=== PATIENT | male | born 1930 | race Caucasian/White ===

== ENCOUNTER 2016-12-07 11:07 | Emergency (ER) | payer MEDICARE, OTHER | END 2016-12-07 11:45 | disposition home or self-care (01) | LOC: ERS 11:07 | DX: B02.9 Zoster without complications (principal); Z79.01 Long term (current) use of anticoagulants; Z79.899 Other long term (current) drug therapy | CPT/HCPCS: 99282 ==

== ENCOUNTER 2017-12-19 09:42 | Outpatient (CLI) | payer MEDICARE, OTHER ==
--- NOTE | 2017-12-19 12:25 | RAD ---
CHEST TWO VIEWS: HISTORY: Dyspnea. Pulmonary edema. COMPARISON: 05/22/2016 FINDINGS: Diffuse interstitial prominence is seen bilaterally. The vascular markings appear within the normal range. Findings suggest chronic interstitial disease. An element of interstitial edema is not exclu ded, although there does not appear to be significant vascular congestion. Heart size is upper j luis l and stable. Aortic calcification is seen. Osseous structures are unremarkable. IMPRESSION: Diffuse interstitial prominence, similar to the prior study. No focal infiltrate or consolidation. POS: [facility]
== END 2017-12-19 09:43 | disposition home or self-care (01) ==
LOC: SCSRAD 09:42
PROVIDERS: ATTEND Family Medicine
DX: J20.9 Acute bronchitis, unspecified (principal)
CPT/HCPCS: 71046

== ENCOUNTER 2018-04-08 16:56 | Inpatient (IN) | payer MEDICARE, OTHER ==
[2018-04-08] MEDS ORDERED: Dexamethasone 10 MG/ML VIAL ONE (18:02)
[2018-04-08] MEDS ORDERED: cefTRIAXone\\ROCEPHIN 1 GM VIAL ONE (18:02)
[2018-04-08 18:06] LABS: Hemoglobin 14.2 g/dL (14.0-18.0); Mean Corpuscular HGB CONC 32.7 g/dL (32.0-36.0); Mean Corpuscular Hemoglobin 30.6 pg (27.0-31.0); Mean Corpuscular Volume 93.6 fL (78.0-98.0); Mean Platelet Volume 8.1 fL (7.4-10.4); Platelet Count 242 thou/uL (130-400); RBC Distribution Width 12.1 % (11.5-14.5); Red Blood Cell (RBC) Count 4.64 mill/uL (4.70-6.10); White Blood Cell (WBC) Count 7.6 thou/uL (4.8-10.8)
--- NOTE | 2018-04-08 18:06 | RAD ---
CHEST ONE VIEW: 04/08/18 INDICATION: Cough with sepsis. COMPARISON: Prior exam dated 05/22/16 and prior dated 12/19/17. FINDINGS: The fibrotic change is stable. Cardiomegaly is stable. No acute air space opacity or pleural effusion is evident. Right costophrenic angle is excluded. No pneumothorax is evident. Chronic osseous mcknight es are similar appearing. IMPRESSION: Stable exam. No acute abnormality. Limitations to exam as above. POS: [facility]
[2018-04-08 18:16] LABS: ALT (SGPT) 48 U/L (8-55); AST (SGOT) 32 U/L (5-34); Albumin 3.5 g/dL (3.4-4.8); Alkaline Phosphatase 69 U/L (40-150); Anion Gap 15 mmol/L (10-20); BUN (Urea Nitrogen) 21 mg/dL (8.4-25.7); Bilirubin, Total 0.9 mg/dL (0.2-1.2); Calc. Creatinine Clearance 0 mL/min (70-130); Calcium 8.9 mg/dL (7.8-10.44); Carbon Dioxide 23 mmol/L (23-31); Chloride 102 mmol/L (98-107); Estimated GFR-MDRD 72; Globulin 3.6 g/dL (2.4-3.5); Glucose 96 mg/dL (83-110); Potassium 3.5 mmol/L (3.5-5.1); Protein, Total 7.1 g/dL (5.8-8.1); Sodium 136 mmol/L (136-145)
[2018-04-08 18:26] LABS: Band 2 % (5-11); Eosinophils 2 % (0-10); Lymphocytes 23 % (21-51); MDiff Complete? YES; Monocytes 15 % (0-10); Neutrophil 56 % (42-75); Platelet Morphology Comment Appears Adequate; Reactive Lymphocytes 2 % (0-10)
[2018-04-08] MEDS ORDERED: Azithromycin 500 MG VIAL ONE (19:25)
[2018-04-08 22:36] LABS: Bilirubin Small (Negative); Blood, Urine Negative (Negative); Clarity CLEAR (Clear); Glucose, Urine (Dipstick) Negative (Negative); Leukocyte Negative (Negative); Nitrite Negative (Negative); Protein, Urine (Dipstick) 30 mg/dL (Neg-Trace); Specific Gravity, Urine 1.026 (1.002-1.036)
[2018-04-08 22:38] LABS: Bacteria/HPF None Seen HPF (None Seen); Hyaline Casts/LPF 7-10 HYALINE CAST LPF (0-3 Hyaline); Pathc Cast-AUWi Flag 1.01 (0-2.49); RBC/HPF 0-3 HPF (0-3); Squamous Epithelial 0-3 HPF (0-3); WBC/HPF 0-3 HPF (0-3)
--- NOTE | 2018-04-08 23:09 | HP ---
PRIMARY CARE PHYSICIAN: Dr Wilks. CHIEF COMPLAINT: Cough for 10 days. HISTORY OF PRESENT ILLNESS: The patient is an 87-year-old male with past medical history of hypothyroidism, BPH, who presented to the emergency department with productive cough for 10 days. The patient was seen by his PCP and was started on clarithromycin, which did not improve the patient's symptoms. The patient's symptoms became worse and that is why he came to the ER. The patient denies any fevers or chills. The patient does not use oxygen at home. The patient denies any history of asthma or COPD. The patient denies any urinary symptoms. The patient denies any chest pain at this point. The patient also denies any shortness of breath. The patient is accompanied by his son, who was present bedside. PAST MEDICAL HISTORY: Hypothyroidism, BPH. PAST SURGICAL HISTORY: The patient has basal cell carcinoma history, tonsillectomy. SOCIAL HISTORY: Lives at home with family. Denies any smoking or alcohol use. FAMILY HISTORY: The patient does not believe that his family had any significant past medical condition. ALLERGIES: NO KNOWN DRUG ALLERGIES. MEDICATIONS: 1. Levothyroxine. 2. Benzonatate. 3. Clarithromycin. 4. Acetaminophen. 5. Ferrous sulfate. 6. Ibuprofen. 7. Vitamin D3. 8. Vitamin B12. 9. Flomax. REVIEW OF SYSTEMS: A 10-point review of system negative other than mentioned in the HPI. PHYSICAL EXAMINATION: CONSTITUTIONAL: The patient is noted to be alert. HEENT: Head, atraumatic. Eyes, extraocular movement intact. Ears and nose appears grossly normal. Throat, no exudate noted. The patient does appear to have dry mouth. RESPIRATORY: Respiration rate, wheezing and upper airway transmitted sound noted. The patient appeared to be breathing normally. CARDIOVASCULAR: Tachycardic. Normal rhythm. No murmur, rubs, or gallops. ABDOMEN: Soft and nontender. Bowel sounds positive. EXTREMITIES: No edema noted. NEUROLOGIC: The patient appears to be alert. SKIN: No abnormal rashes noted. LABORATORY DATA: The patient's labs reviewed. BMP, appears to be grossly normal. BNP was 102. CBC, white blood cell count 7.6, hemoglobin 14.2, hematocrit 43.5, platelet is 242. UA is pending at this point. DIAGNOSTIC DATA: Chest x-ray reviewed and stable fibrotic changes, stable. No acute abnormality noted. EKG reviewed. No ST-segment elevation noted. QTc 481. Significant for rhythm with sinus arrhythmia. ASSESSMENT AND PLAN: 1. Bronchitis/cough. Unclear if this is bacterial versus viral. The patient was admitted with suspicion for pneumonia. The patient was given ceftriaxone, azithromycin, dextromethorphan and DuoNeb in the ER, which made him feel better. We will continue ceftriaxone and azithromycin at this point. CT chest without contrast ordered. We will follow cultures. Continue nebs and oxygen. 2. Hypertension. The patient was admitted with blood pressure of 85/64, improved with IV fluids bolus in the ED. The patient appears to be bit dehydrated, although the creatinine was within normal limits. We will continue IV fluids for one day and continue to monitor the patient's blood pressure at this point. 3. History of BPH. We will continue patient on Flomax. 4. Hypothyroidism. We will continue patient's levothyroxine. 5. The patient is full code. 6. Medical power of deputy county attorney. The patient would like his son to make decision if he is not able to. 7. Deep venous thrombosis prophylaxis, Lovenox. Job ID: [id number] [facility]
[2018-04-09] MEDS ORDERED: Azithromycin 500 MG in Sodium Chloride 0.9% 250 ML 250 ML IVPB SCH ×2 (00:02→20:00)
[2018-04-09] MEDS ORDERED: Benzonatate 100 MG CAP PO PRN (00:02)
[2018-04-09] MEDS ORDERED: Albuterol Sulfate 1.25 MG/3 ML NEB NEB PRN (00:02)
[2018-04-09] MEDS ORDERED: Diabetic Tussin 200 MG/10 ML UDCUP PO PRN (00:02)
[2018-04-09] MEDS ORDERED: Bisacodyl 5 MG TAB PO PRN (00:02)
[2018-04-09] MEDS ORDERED: Acetaminophen 325 MG TAB PO PRN (00:02)
[2018-04-09] MEDS: Sodium Chloride 0.9% 1,000 ML IV SCH ×2 (00:36→19:31)
[2018-04-09 00:53] VITALS: BMI 22.6
[2018-04-09] MEDS: Levothyroxine Sodium 125 MCG TAB PO SCH (05:31)
[2018-04-09 06:44] LABS: Anion Gap 14 mmol/L (10-20); BUN (Urea Nitrogen) 18 mg/dL (8.4-25.7); Calc. Creatinine Clearance 48 mL/min (70-130); Calcium 8.4 mg/dL (7.8-10.44); Carbon Dioxide 18 mmol/L (23-31); Chloride 105 mmol/L (98-107); Estimated GFR-MDRD 64; Glucose 228 mg/dL (83-110); Potassium 3.4 mmol/L (3.5-5.1); Sodium 134 mmol/L (136-145)
[2018-04-09 07:22] LABS: Hemoglobin 12.7 g/dL (14.0-18.0); Mean Corpuscular HGB CONC 33.9 g/dL (32.0-36.0); Mean Corpuscular Hemoglobin 31.9 pg (27.0-31.0); Mean Corpuscular Volume 94.2 fL (78.0-98.0); Mean Platelet Volume 7.9 fL (7.4-10.4); Platelet Count 198 thou/uL (130-400); Red Blood Cell (RBC) Count 3.98 mill/uL (4.70-6.10); White Blood Cell (WBC) Count 4.2 thou/uL (4.8-10.8)
[2018-04-09 08:33] LABS: Band 10 % (5-11); Lymphocytes 13 % (21-51); MDiff Complete? YES; Metamyelocyte 2 % (0-0); Monocytes 1 % (0-10); Myelocyte 3 % (0-0); Neutrophil 71 % (42-75); RBC Morphology Normal
[2018-04-09] MEDS: Enoxaparin Sodium 30 MG/0.3 ML SYRINGE SC SCH (09:26)
[2018-04-09] MEDS: Tamsulosin HCl 0.4 MG CAP PO SCH (09:26)
--- NOTE | 2018-04-09 09:33 | CT ---
CT CHEST WITHOUT CONTRAST: Technique: Multiple axial tomograms were obtained through the chest without IV enhancement. Indications: Bronchitis. Chest pain. FINDINGS: There are chronic lung parenchymal changes consistent with COPD. There is mild hyperexpansion. Inters titial prominence is seen in the periphery of both lungs, more prominent in the mid and lower lung fi elds. There is stranding in the lung bases seen bilaterally. Mild lower lobe bronchiectasis, slightly more prominent in the posterior right lung base. There is an 8 mm nodule near the pleural surface la teral right lung base. No evidence of infiltrate or consolidation. Mediastinum unremarkable. No adeno meryl. Upper abdomen shows a mildly distended gallbladder with at least two calcified gallstones in t he gallbladder fundus. Osseous structures unremarkable. IMPRESSION: 1. Chronic lung parenchymal changes as described above. No evidence of confluent alveolar infiltrate. 2. Small 8 mm nodule in the right lower lobe peripherally. Suggest follow up noncontrast CT in 6 praful hs to confirm stability. 3. Cholelithiasis is noted. POS: [facility]
[2018-04-09] MEDS ORDERED: Cefdinir 300 MG CAP PO SCH (10:45)
[2018-04-09] MEDS ORDERED: Potassium Chloride 20 MEQ TAB PO SCH (10:45)
--- NOTE | 2018-04-09 14:01 | PDOC.PN ---
- Subjective Encounter Start Date: 04/09/18 Encounter Start Time: 09:20 Pt seen for followup re: acute bronchitis. Feels better. - Objective Resuscitation Status - Order Detail: 04/08/18 22:20 Resuscitation Status Routine Resuscitation Status: FULL: Full Resuscitation MAR Reviewed: Yes Vital Signs & Weight: Vital Signs (12 hours) Temp Pulse Resp BP Pulse Ox Pulse Ox Pulse Ox 04/09/18 13:35 71 18 96 04/09/18 13:23 98.2 F 68 20 109/67 96 04/09/18 10:51 96 91 L 04/09/18 09:36 69 18 95 04/09/18 08:11 98.3 F 61 18 140/85 95 04/09/18 06:57 79 18 97 04/09/18 05:00 97.6 F 79 18 122/78 96 Pulse Ox 04/09/18 13:35 04/09/18 13:23 04/09/18 10:51 96 04/09/18 09:36 04/09/18 08:11 04/09/18 06:57 04/09/18 05:00 Weight Weight 162 lb 4.163 oz I&O: 04/08/18 04/09/18 04/10/18 06:59 06:59 06:59 Intake Total 500 Balance 500 Result Diagrams: 04/09/18 05:56 04/09/18 05:56 Additional Labs: labs reviewed by me Phys Exam - Physical Examination Constitutional: NAD HEENT: moist MMs Neck: supple Respiratory: wheezing present Cardiovascular: RRR Gastrointestinal: soft Neurological: moves all 4 limbs Psychiatric: normal affect Dx/Plan (1) Acute bronchitis Code(s): J20.9 - ACUTE BRONCHITIS, UNSPECIFIED Status: Acute Comment: improving, switch to oral antibiotics (2) BPH (benign prostatic hyperplasia) Code(s): N40.0 - BENIGN PROSTATIC HYPERPLASIA WITHOUT LOWER URINRY TRACT SYMP Status: Chronic Comment: stable (3) Lung nodule Code(s): R91.1 - SOLITARY PULMONARY NODULE Status: Chronic Comment: needs followup CT in 6 months (4) Atrial fibrillation Code(s): I48.91 - UNSPECIFIED ATRIAL FIBRILLATION Status: Chronic Comment: in sinus rhythm - Plan * . Review of Systems - Review of Systems Respiratory: Cough, Sputum. negative: Dry, Shortness of Breath, Hemoptysis, SOB with Excertion, Pleuritic Pain, Wheezing Cardiovascular: negative: chest pain, palpitations, orthopnea, paroxysmal nocturnal dyspnea, edema, light headedness - Medications/Allergies Allergies/Adverse Reactions: Allergies Allergy/AdvReac Type Severity Reaction Status Date / Time No Known Drug Allergies Allergy Verified 05/20/16 15:37 Medications: Current Medications Acetaminophen (Tylenol) 650 mg PO Q4H PRN PRN Reason: Headache/Fever/Mild Pain (1-3) Albuterol Sulfate (Albuterol Sulfate) 1.25 mg NEB [id number] PRN PRN Reason: Wheezing Albuterol/Ipratropium (Duoneb) 3 ml NEB [id number] [facility] Last Admin: 04/09/18 13:35 Dose: 3 ml Benzonatate (Tessalon) 100 mg PO TIDPRN PRN PRN Reason: Cough Bisacodyl (Dulcolax) 10 mg PO DAILYPRN PRN PRN Reason: Constipation Cefdinir (Omnicef) 300 mg PO BID [facility] Enoxaparin Sodium (Lovenox) 30 mg SC 0900 [facility] Last Admin: 04/09/18 09:26 Dose: 30 mg Guaifenesin (Robitussin Sf) 100 mg PO Q4H PRN PRN Reason: Cough Azithromycin 500 mg/ Sodium (Chloride) 250 mls @ 250 mls/hr IVPB Q24HR [facility] Levothyroxine Sodium (Synthroid) 125 mcg PO 0600 [facility] Last Admin: 04/09/18 05:31 Dose: 125 mcg Sodium Chloride (Flush - Normal Saline) 10 ml IVF Q12HR [facility] Last Admin: 04/09/18 09:26 Dose: 10 ml Sodium Chloride (Flush - Normal Saline) 10 ml IVF PRN PRN PRN Reason: Saline Flush Tamsulosin HCl (Flomax) 0.4 mg PO DAILY [facility] Last Admin: 04/09/18 09:26 Dose: 0.4 mg
--- NOTE | 2018-04-09 15:08 | PQF ---
CLINICAL DOCUMENTATION IMPROVEMENT CLARIFICATION FORM: ICD-10 Updated PLEASE DO AN ADDENDUM TO THE PROGRESS NOTE WITH ANY DOCUMENTATION UPDATES OR ADDITIONS AND CARRY THROUGH TO DC SUMMARY. THANK YOU. DATE: 04/10/18 ATTN: DR. ADKINS Please exercise your independent, professional judgment in responding to the clarification form. Clinical indicators are provided on the bottom of this form for your review Please check appropriate box(s) to clarify if the following diagnosis has been ruled in or ruled out: PNEUMONIA [ ] Ruled in diagnosis [ ] Continue to treat [ ] Resolved [ x ] Ruled out diagnosis [ ] Other diagnosis [ ] Unable to determine In addition, please specify: Present on Admission (POA): [ ] Yes [ ] No [ ] Unable to determine For continuity of documentation, please document condition throughout progress notes and discharge summary. Thank You. CLINICAL INDICATORS - SIGNS / SYMPTOMS / LABS ER NOTE: "PNEUMONIA" H&P: "THE PATIENT WAS ADMITTED WITH SUSPICION FOR PNEUMONIA" RISKS: PRODUCTIVE COUGH WHEEZING BRONCHITIS TREATMENT: DUONEBS (ER-PRESENT) IV AZITHROMYCIN (ER-PRESENT) IV DEXAMETHASONE (ER) IV ROCEPHIN (ER) OMNICEF (STARTED 04/09) BLOOD CULTURES (This form is maintained as a part of the permanent medical record) [employer] Managing Director [employer] 2015 [employer]. All Rights Reserved RED [email or web address] Office: [phone] [place]
[2018-04-09] MEDS ORDERED: Ondansetron ODT 4 MG TAB PO PRN (19:44)
[2018-04-09] MEDS: Cefdinir 300 MG CAP PO SCH (19:52)
[2018-04-09] MEDS ORDERED: cefTRIAXone\\ROCEPHIN 1 GM in Sodium Chloride 0.9% 100 ML IVPB SCH (22:30)
[2018-04-10] MEDS: Levothyroxine Sodium 125 MCG TAB PO SCH (06:09)
[2018-04-10] MEDS ORDERED: Prevnar 13-Val Conj/PF 0.5 ML SYRINGE IM ONE (09:00)
[2018-04-10] MEDS: Tamsulosin HCl 0.4 MG CAP PO SCH (10:19)
[2018-04-10] MEDS: Cefdinir 300 MG CAP PO SCH (10:19)
[2018-04-10] MEDS: Enoxaparin Sodium 30 MG/0.3 ML SYRINGE SC SCH (10:20)
[2018-04-10 11:39] VITALS: BP 114/69; TEMP 98.2
--- NOTE | 2018-04-11 01:23 | DIS ---
DATE OF ADMISSION: 04/08/2018 DATE OF DISCHARGE: 04/10/2018 PRIMARY CARE PROVIDER: Dr. Yuan Wilks. DISCHARGE DIAGNOSES: 1. Acute bronchitis. 2. Lung nodule. CONDITION OF PATIENT ON THE DAY OF DISCHARGE: Stable. I assessed Mr. Laguerre on the day of discharge. He denies any chest pain or shortness of breath. Vital signs are stable. S1 and S2 are heard, regular. Lungs are clear to auscultation bilaterally. DISCHARGE MEDICATIONS: 1. Oral prednisone taper. 2. Cefdinir 300 mg 2 times a day for 8 days. 3. Azithromycin 250 mg daily for 4 days. 4. Vitamin D3/folic acid 1 tablet daily. 5. Flomax 0.4 mg 2 times a day. 6. Levothyroxine 125 mcg daily. 7. Iron/vitamin/folic acid 1 tab daily. 8. Ibuprofen p.r.n. 9. Tessalon p.r.n. 10. Acetaminophen p.r.n. HOSPITAL COURSE: Mr. Laguerre is a pleasant 87-year-old gentleman, who was admitted to [facility] on April 08, 2018, for acute bronchitis. Please refer to Dr. Wilcox's history and physical note dated April 08, 2018, for further details. He improved with oxygen and antibiotics. He is being discharged home in a stable condition. During this hospitalization, he had a BNP of 102. He also had a CT scan of the chest, which showed chronic lung parenchymal changes, no evidence of confluent alveolar infiltrate. He has a small 8 mm nodule in the right lower lobe peripherally. Radiologies suggest followup noncontrast CT scan in 6 months to confirm stability. The patient has been advised to discuss with his primary care provider to arrange for the CT scan. He also had cholelithiasis. Many thanks for allowing me to participate in your patient's care. Please feel free to contact me with any questions or concerns. DISCHARGE DESTINATION: Home. TIME SPENT: Total amount of time spent coordinating this discharge: 31 minutes. Job ID: [id number]
--- NOTE | 2018-04-11 17:34 | EKG ---
Test Reason : Blood Pressure : / mmHG Vent. Rate : 078 BPM Atrial Rate : 078 BPM P-R Int : 150 ms QRS Dur : 126 ms QT Int : 422 ms P-R-T Axes : 029 -61 001 degrees QTc Int : 481 ms Sinus rhythm with marked sinus arrhythmia with occasional Premature ventricular complexes Left axis deviation Right bundle branch block Inferior infarct , age undetermined Abnormal ECG Confirmed by AYAKA KIMBLE, DASH Stafford ([id number]), purchasing expeditor SHANIQUE PHILLIPS ([id number]) on 04/11/2018 5:34:23 PM Referred By: AYAKA Confirmed By:DASH MARLEY MD
== END 2018-04-10 13:58 | disposition home or self-care (01) | DRG 203 ==
LOC: ERS 16:56 → T4-B 19:20
PROVIDERS: ADMIT Emergency Medicine; ATTEND Emergency Medicine
DX: J20.9 Acute bronchitis, unspecified (principal); E03.9 Hypothyroidism, unspecified; N40.0 Benign prostatic hyperplasia without lower urinary tract symptoms; I10 Essential (primary) hypertension; R91.1 Solitary pulmonary nodule; I48.91 Unspecified atrial fibrillation; Z90.89 Acquired absence of other organs; Z85.828 Personal history of other malignant neoplasm of skin
CPT/HCPCS: 36415; 71045; 71250; 80048; 80053; 81003; 81015; 83605; 83880; 85025; 87040; 87070; 87086; 87205; 87804; 90471; 90662; 90670; 93005; 94640; 96365; 96366; 96367; G0008; G0009; J0456; J0696; J1100; J1650; J7050; J7620; Q0162